=== PATIENT | female | born 1945 | race Caucasian/White ===

== ENCOUNTER 2016-11-22 10:47 | Outpatient (CLI) | payer MEDICARE, MEDICAID ==
[2016-11-22 11:53] LABS: #Basophils 0.1 thou/uL (0.0-0.2); #Eosinphils 0.1 thou/uL (0.0-0.7); #Lymphocytes 2.2 thou/uL (1.20-3.40); #Monocytes 0.5 thou/uL (0.11-0.59); #Neutrophils 4.5 thou/uL (1.40-6.50); %Basophils 1.9 % (0.0-1.0); %Monocytes 6.5 % (0.0-10.0); Hematocrit 47.7 % (36.0-47.0); Mean Platelet Volume 8.6 fL (7.4-10.4); Red Blood Cell (RBC) Count 4.88 mill/uL (4.20-5.40); White Blood Cell (WBC) Count 7.5 thou/uL (4.8-10.8)
[2016-11-22 12:07] LABS: ALT (SGPT) 26 U/L (0-55); AST (SGOT) 24 U/L (5-34); Alkaline Phosphatase 48 U/L (40-150); Anion Gap 16 mmol/L (10-20); BUN (Urea Nitrogen) 28 mg/dL (9.8-20.1); Bilirubin, Total 0.7 mg/dL (0.2-1.2); Calc. Creatinine Clearance 0 mL/min (70-130); Calcium 9.7 mg/dL (7.8-10.44); Carbon Dioxide 23 mmol/L (23-31); Chloride 107 mmol/L (98-107); Estimated GFR-MDRD 42; Globulin 2.7 g/dL (2.4-3.5); LDL Cholesterol, Calculated 92 mg/dL; Protein, Total 6.9 g/dL (5.8-8.1)
== END 2016-11-22 10:48 | disposition home or self-care (01) ==
LOC: HPCALD 10:47
PROVIDERS: ATTEND Family Medicine
DX: E78.00 Pure hypercholesterolemia, unspecified (principal); I10 Essential (primary) hypertension
CPT/HCPCS: 36415; 80053; 80061; 85025

== ENCOUNTER 2016-11-23 10:24 | Outpatient (CLI) | payer MEDICARE, MEDICAID ==
[2016-11-23 11:28] LABS: Hemoglobin A1c 6.2 % (4.0-6.0)
== END 2016-11-23 10:25 | disposition home or self-care (01) ==
LOC: HPCALD 10:24
PROVIDERS: ATTEND Family Medicine
DX: R73.9 Hyperglycemia, unspecified (principal)
CPT/HCPCS: 83036

== ENCOUNTER 2018-03-07 14:13 | Emergency (ER) | payer MEDICARE ==
[~2018-03-07 14:13] MED LIST: Iopamidol 370 76% 100 ML VIAL ONE
[2018-03-07] MEDS ORDERED: Ketorolac Tromethamine 30 MG/ML VIAL ONE (14:34)
[2018-03-07] MEDS ORDERED: Ondansetron HCl/PF 4 MG/2 ML Vial ONE (14:34)
[2018-03-07 14:44] LABS: #Basophils 0.1 thou/uL (0.0-0.2); #Eosinphils 0.2 thou/uL (0.0-0.7); #Lymphocytes 2.2 thou/uL (1.20-3.40); #Monocytes 0.6 thou/uL (0.11-0.59); #Neutrophils 4.8 thou/uL (1.40-6.50); %Basophils 1.7 % (0.0-1.0); %Eosinophils 1.9 % (0.0-10.0); %Lymphocytes 28.1 % (21.0-51.0); %Monocytes 7.5 % (0.0-10.0); %Neutrophils 60.8 % (42.0-75.0); Hemoglobin 15.1 g/dL (12.0-16.0); Mean Corpuscular HGB CONC 34.3 g/dL (32.0-36.0); Mean Corpuscular Hemoglobin 31.6 pg (27.0-31.0); Mean Corpuscular Volume 92.3 fl (81.0-99.0); Mean Platelet Volume 8.7 fL (7.4-10.4); Platelet Count 274 thou/uL (130-400); Red Blood Cell (RBC) Count 4.78 mill/uL (4.20-5.40); White Blood Cell (WBC) Count 7.9 thou/uL (4.8-10.8)
[2018-03-07 14:46] LABS: Bilirubin Negative (Negative); Blood, Urine Negative (Negative); Clarity Clear (Clear); Glucose, Urine (Dipstick) Negative (Negative); Leukocyte Negative (Negative); Nitrite Negative (Negative); Protein, Urine (Dipstick) 30 mg/dL (Neg-Trace); Specific Gravity, Urine 1.015 (1.005-1.030); Urobilinogen 0.2 mg/dL (0.2-1.0); pH, Urine 5.5 (5.0-9.0)
[2018-03-07 14:56] LABS: Bacteria/HPF None Seen HPF (None Seen); Crystals/HPF None Seen HPF (Negative); Hyaline Casts/LPF NONE SEEN LPF (0-3 Hyaline); Other Casts/LPF None Seen LPF (0-3 Hyaline); Oval Fat Bodies/HPF None Seen HPF (None Seen); RBC/HPF None Seen HPF (0-3); Renal Epithelial None Seen HPF (0-3); Sperm/HPF None Seen HPF (None Seen); Squamous Epithelial 0-3 HPF (0-3); Transitional Epithelial NONE SEEN HPF (0-3); Trichomonas/HPF None Seen HPF (None Seen); WBC/HPF None Seen HPF (0-3); Yeast-All Forms None Seen HPF (None Seen)
[2018-03-07 14:59] LABS: ALT (SGPT) 39 U/L (8-55); AST (SGOT) 35 U/L (5-34); Albumin 4.3 g/dL (3.4-4.8); Alkaline Phosphatase 49 U/L (40-150); Anion Gap 16 mmol/L (10-20); BUN (Urea Nitrogen) 24 mg/dL (9.8-20.1); Bilirubin, Total 0.5 mg/dL (0.2-1.2); Calc. Creatinine Clearance 0 mL/min (70-130); Calcium 9.9 mg/dL (7.8-10.44); Carbon Dioxide 25 mmol/L (23-31); Chloride 104 mmol/L (98-107); Estimated GFR-MDRD 48; Glucose 150 mg/dL (83-110); Lipase 20 U/L (8-78); Potassium 3.9 mmol/L (3.5-5.1); Protein, Total 7.3 g/dL (6.0-8.3); Sodium 141 mmol/L (136-145)
[2018-03-07] MEDS ORDERED: Pantoprazole 40 MG VIAL ONE (15:49)
[2018-03-07] MEDS ORDERED: Ciprofloxacin 500 MG TAB ONE (15:59)
[2018-03-07] MEDS ORDERED: metroNIDAZOLE 250 MG TAB ONE (15:59)
[2018-03-07] MEDS ORDERED: Acetaminophen 500 MG TAB ONE (16:02)
[2018-03-07] MEDS ORDERED: metroNIDAZOLE 500 MG/100 ML BAG ONE (16:02)
--- NOTE | 2018-03-07 16:34 | CT ---
CT ABDOMEN AND PELVIS WITH IV CONTRAST 03/07/18 HISTORY: Lower abdominal pain. FINDINGS: There are mild dependent changes in the lung bases. The patient is post cholecystectomy. The liver de monstrates decreased attenuation compared to the spleen consistent with fatty infiltration. The splee n, pancreas, right adrenal gland and kidneys are normal. A small left adrenal myelolipoma is seen wit h presence of macroscopic fat. No free air, free fluid or lymphadenopathy seen in the abdomen or pelvis. The patient is post hystere ctomy. There is colonic diverticulosis with mild pericolonic inflammatory changes in the left lower q uadrant with mild diverticulitis. No abnormally loculated fluid collection is seen to suggest abscess formation. There are vascular calcifications without evidence of aneurysmal dilatation of the abdomi nal aorta. Degenerative changes are present in the spine. IMPRESSION: 1. Colonic diverticulosis with diverticulitis in the left lower quadrant. 2. Fatty liver. 3. Tiny left adrenal myelolipoma. POS: [facility]
== END 2018-03-07 16:49 | disposition home or self-care (01) ==
LOC: BURERS 14:13
DX: K57.92 Diverticulitis of intestine, part unspecified, without perforation or abscess without bleeding (principal); E78.5 Hyperlipidemia, unspecified; I10 Essential (primary) hypertension; F41.9 Anxiety disorder, unspecified; F32.9 Major depressive disorder, single episode, unspecified
CPT/HCPCS: 74177; 80053; 81003; 81015; 83690; 85025; 96361; 96374; 96375; A4216; C9113; J1885; J2405

== ENCOUNTER 2018-09-06 02:16 | Emergency (ER) | payer MEDICARE, OTHER ==
[2018-09-06] MEDS ORDERED: Nitroglycerin 0.4 MG TAB (25 Tab Bottle) ONE (02:50)
[2018-09-06 03:05] LABS: #Basophils 0.1 thou/uL (0.0-0.2); #Eosinphils 0.2 thou/uL (0.0-0.7); #Lymphocytes 2.5 thou/uL (1.20-3.40); #Monocytes 0.6 thou/uL (0.11-0.59); #Neutrophils 3.4 thou/uL (1.40-6.50); %Eosinophils 3.1 % (0.0-10.0); %Monocytes 9.1 % (0.0-10.0); %Neutrophils 49.7 % (42.0-75.0); Hemoglobin 14.5 g/dL (12.0-16.0); Mean Corpuscular HGB CONC 34.7 g/dL (32.0-36.0); Mean Corpuscular Hemoglobin 31.9 pg (27.0-31.0); Mean Corpuscular Volume 91.9 fL (78.0-98.0); Platelet Count 252 thou/uL (130-400); RBC Distribution Width 11.4 % (11.5-14.5); Red Blood Cell (RBC) Count 4.53 mill/uL (4.20-5.40); White Blood Cell (WBC) Count 6.9 thou/uL (4.8-10.8)
[2018-09-06 03:12] LABS: ALT (SGPT) 31 U/L (8-55); AST (SGOT) 32 U/L (5-34); Albumin 4.1 g/dL (3.4-4.8); Alkaline Phosphatase 44 U/L (40-150); Anion Gap 15 mmol/L (10-20); BUN (Urea Nitrogen) 23 mg/dL (9.8-20.1); Bilirubin, Total 0.4 mg/dL (0.2-1.2); Calc. Creatinine Clearance 0 mL/min (70-130); Calcium 9.6 mg/dL (7.8-10.44); Carbon Dioxide 24 mmol/L (23-31); Chloride 107 mmol/L (98-107); Estimated GFR-MDRD 55; Globulin 2.8 g/dL (2.4-3.5); Glucose 153 mg/dL (83-110); Potassium 3.8 mmol/L (3.5-5.1); Protein, Total 6.9 g/dL (6.0-8.3); Sodium 142 mmol/L (136-145)
[2018-09-06 03:14] LABS: CKMB 3.9 ng/mL (0-6.6); Troponin I 0.018 ng/mL (< 0.028)
--- NOTE | 2018-09-06 08:54 | RAD ---
PORTABLE CHEST 1 VIEW: Date: 09/06/18 Time: 0218 hours HISTORY: Shortness of breath. Chest pain. FINDINGS: Heart size is borderline. Lungs are well expanded without lobar consolidation, pneumothoraces, vick pulmonary edema, or pleural effusions. There are postop changes of bilateral shoulder arthroplasties. IMPRESSION: No acute process. POS: [facility]
== END 2018-09-06 03:45 | disposition short-term general hospital (02) ==
LOC: BURERS 02:16
DX: R07.89 Other chest pain (principal); E78.5 Hyperlipidemia, unspecified; F32.9 Major depressive disorder, single episode, unspecified; F41.9 Anxiety disorder, unspecified; I10 Essential (primary) hypertension; Z85.3 Personal history of malignant neoplasm of breast; Z79.82 Long term (current) use of aspirin; Z79.899 Other long term (current) drug therapy
CPT/HCPCS: 71045; 80053; 82553; 83880; 84484; 85025; 85379; 93005

== ENCOUNTER 2020-08-05 14:55 | Emergency (ER) | payer MEDICARE ==
[2020-08-05 15:54] LABS: #Basophils 0.1 thou/uL (0.0-0.2); #Eosinphils 0.2 thou/uL (0.0-0.7); #Lymphocytes 1.9 thou/uL (1.20-3.40); #Monocytes 0.6 thou/uL (0.11-0.59); #Neutrophils 4.1 thou/uL (1.40-6.50); %Basophils 1.5 % (0.0-1.0); %Eosinophils 2.8 % (0.0-10.0); %Monocytes 8.1 % (0.0-10.0); %Neutrophils 59.6 % (42.0-75.0); Hemoglobin 13.5 g/dL (12.0-16.0); Mean Corpuscular HGB CONC 31.5 g/dL (32.0-36.0); Mean Corpuscular Hemoglobin 32.1 pg (27.0-31.0); Mean Platelet Volume 8.2 fL (7.4-10.4); Platelet Count 223 thou/uL (130-400); RBC Distribution Width 12.2 % (11.5-14.5); White Blood Cell (WBC) Count 6.8 thou/uL (4.8-10.8)
[2020-08-05 16:15] LABS: ALT (SGPT) 37 U/L (8-55); AST (SGOT) 26 U/L (5-34); Alkaline Phosphatase 80 U/L (40-110); Anion Gap 16 mmol/L (10-20); BUN (Urea Nitrogen) 26 mg/dL (9.8-20.1); Bilirubin, Total 0.4 mg/dL (0.2-1.2); Calc. Creatinine Clearance 0 mL/min (70-130); Carbon Dioxide 21 mmol/L (23-31); Chloride 108 mmol/L (98-107); Estimated GFR-MDRD 50; Globulin 2.7 g/dL (2.4-3.5); Glucose 139 mg/dL (83-110); Lipase 20 U/L (8-78); Potassium 4.1 mmol/L (3.5-5.1); Protein, Total 6.7 g/dL (6.0-8.3); Sodium 141 mmol/L (136-145)
[2020-08-05 16:28] LABS: Bilirubin Negative (Negative); Blood, Urine Negative (Negative); Clarity Cloudy (Clear); Glucose, Urine (Dipstick) Negative (Negative); Ketone, Urine Trace mg/dL (Negative); Leukocyte Trace (Negative); Nitrite Positive (Negative); Protein, Urine (Dipstick) Negative (Neg-Trace); Specific Gravity, Urine 1.015 (1.005-1.030); Urobilinogen 0.2 mg/dL (Less than 2)
[2020-08-05 16:35] LABS: Bacteria/HPF 3+ HPF (None Seen); RBC/HPF 0-3 HPF (0-3); Squamous Epithelial 0-3 HPF (0-3); Yeast-Budding Rare HPF (None Seen)
--- NOTE | 2020-08-05 20:13 | CT ---
CT ABDOMEN AND PELVIS WITH CONTRAST: 08/05/20 The lung bases are clear except for some dependent atelectasis. A small 1 cm lucency in the left lobe of the liver is probably a small cyst or less likely a small hemangioma. I doubt its significance. T he liver is otherwise normal in appearance. The spleen, pancreas, adrenal glands, and kidneys showed no acute findings. There has been a prior cholecystectomy. The aorta is normal in size. The bowel shows no distention or wall thickening. Diverticulosis is present, predominantly in the lef t colon. There were no convincing findings of diverticulitis. At most, there was a little stranding a round a few of the diverticula near the left iliac crest, but my understanding is that this is not a focal site of pain. Given the clinical history of longstanding diarrhea and cramping pain, there was no particular colonic thickening to suggest colitis. No free air or free fluid was present. CT of the pelvis shows no pelvic masses, fluid collections, or acute inflammatory changes. Degenerati ve changes are present throughout the patient's lumbar region. Comparison with the prior CT of 03/07/18 did not show any dramatic adverse change. IMPRESSION: Diverticulosis without definite findings of diverticulitis at this time. If symptoms worsen, rescanni ng for a second look at the left colon might be necessary. Preliminary findings called to Sofie in ER at 1742 on 08/05/20. POS: HOME
== END 2020-08-05 18:05 | disposition home or self-care (01) ==
LOC: BURERS 14:55
DX: R10.84 Generalized abdominal pain (principal); G89.29 Other chronic pain; R19.7 Diarrhea, unspecified; R11.2 Nausea with vomiting, unspecified; F41.9 Anxiety disorder, unspecified; F32.9 Major depressive disorder, single episode, unspecified; E78.5 Hyperlipidemia, unspecified; E78.00 Pure hypercholesterolemia, unspecified; I10 Essential (primary) hypertension; Z85.3 Personal history of malignant neoplasm of breast; Z79.82 Long term (current) use of aspirin; Z79.899 Other long term (current) drug therapy
CPT/HCPCS: 74177; 80053; 81003; 81015; 83690; 83735; 84443; 84484; 85025; 93005; 94760; Q9967

== ENCOUNTER 2020-09-02 15:08 | Outpatient (CLI) | payer MEDICARE ==
--- NOTE | 2020-09-02 18:14 | RAD ---
LUMBAR SPINE FOUR VIEWS: 09/02/20 AP and lateral views are provided, with lateral views in the neutral, flexion and extension positions . Comparison is made with a 12/19/12 study. No fracture was seen. The appearance of the spine is similar to before, but osteophytes have gotten a bit larger. The disc between L3 and L4 has degenerated a bit more and this disc space has gotten dominick rower. Narrowing at L2-L3 and L5-S1 is about the same as before. Between flexion and extension, there were no levels that showed significant movement. The SI joints are unremarkable. There is very minor curvature of the spine convexed right. IMPRESSION: Multilevel degenerative change with no significant movement of vertebra between flexion and extension . Degenerative disc disease at L3-L4 has worsened since 2012. POS: HOME
== END 2020-09-02 15:09 | disposition home or self-care (01) ==
LOC: BURRAD 15:08
PROVIDERS: ATTEND Neurological Surgery
DX: M48.061 Spinal stenosis, lumbar region without neurogenic claudication (principal); M51.36 Other intervertebral disc degeneration, lumbar region; M47.816 Spondylosis without myelopathy or radiculopathy, lumbar region
CPT/HCPCS: 72110

== ENCOUNTER 2020-11-25 12:41 | Outpatient (CLI) | payer MEDICARE ==
--- NOTE | 2020-11-25 16:51 | RAD ---
LUMBAR SPINE THREE VIEWS: 11/25/20 Comparison is made with the 09/02/20 study. In the interim, there has been laminectomies performed at L3, L4 and L5. There is a posterior lumbar fusion with pedicle screws at L5-S1, along with placement of a synthetic disc at this level. There is a little more curvature to the spine today, convexed right than previously. Additionally, the L2-L3 disc space seems narrower today than before. There are a few air fluid levels in the colon on the right side. The finding is nonspecific and proba arcadio not currently significant. IMPRESSION: Postoperative changes compared to the prior exam. Some increased disc space narrowing at L2-L3 compar ed to before. Postop alignment of the spine is satisfactory. POS: HOME
== END 2020-11-25 12:42 | disposition home or self-care (01) ==
LOC: BURRAD 12:41
PROVIDERS: ATTEND Neurological Surgery
DX: M48.062 Spinal stenosis, lumbar region with neurogenic claudication (principal); Z98.890 Other specified postprocedural states
CPT/HCPCS: 72100

== ENCOUNTER 2020-12-09 15:57 | Emergency (ER) | payer MEDICARE ==
[2020-12-09] MEDS ORDERED: Meclizine HCl 25 MG TAB ONE (16:20)
[2020-12-09 16:23] LABS: #Basophils 0.1 thou/uL (0.0-0.2); #Eosinphils 0.2 thou/uL (0.0-0.7); #Lymphocytes 1.5 thou/uL (1.20-3.40); #Monocytes 0.5 thou/uL (0.11-0.59); #Neutrophils 3.8 thou/uL (1.40-6.50); %Basophils 1.4 % (0.0-1.0); %Eosinophils 2.8 % (0.0-10.0); %Lymphocytes 24.8 % (21.0-51.0); %Monocytes 7.4 % (0.0-10.0); %Neutrophils 63.6 % (42.0-75.0); Hemoglobin 13.3 g/dL (12.0-16.0); Mean Corpuscular HGB CONC 32.5 g/dL (32.0-36.0); Mean Corpuscular Hemoglobin 32.2 pg (27.0-31.0); Mean Platelet Volume 8.5 fL (7.4-10.4); Platelet Count 218 thou/uL (130-400); Red Blood Cell (RBC) Count 4.15 mill/uL (4.20-5.40)
[2020-12-09 16:42] LABS: ALT (SGPT) 22 U/L (8-55); AST (SGOT) 23 U/L (5-34); Alkaline Phosphatase 73 U/L (40-110); Anion Gap 18 mmol/L (10-20); BUN (Urea Nitrogen) 26 mg/dL (9.8-20.1); Bilirubin, Total 0.3 mg/dL (0.2-1.2); Calc. Creatinine Clearance 0 mL/min (70-130); Calcium 9.3 mg/dL (7.8-10.44); Carbon Dioxide 24 mmol/L (23-31); Chloride 103 mmol/L (98-107); Glucose 123 mg/dL (83-110); Potassium 4.4 mmol/L (3.5-5.1); Sodium 141 mmol/L (136-145)
[2020-12-09 17:49] LABS: Bilirubin Negative (Negative); Blood, Urine Negative (Negative); Clarity Cloudy (Clear); Glucose, Urine (Dipstick) Negative (Negative); Ketone, Urine Negative (Negative); Leukocyte Trace (Negative); Nitrite Positive (Negative); Protein, Urine (Dipstick) Trace mg/dL (Neg-Trace); Specific Gravity, Urine 1.015 (1.005-1.030); Urobilinogen 0.2 mg/dL (Less than 2); pH, Urine 6.5 (5.0-9.0)
[2020-12-09 17:51] LABS: Bacteria/HPF 3+ HPF (None Seen); RBC/HPF None Seen HPF (0-3)
== END 2020-12-09 18:07 | disposition home or self-care (01) ==
LOC: BURERS 15:57
DX: H81.13 Benign paroxysmal vertigo, bilateral (principal); R82.71 Bacteriuria; E78.5 Hyperlipidemia, unspecified; E78.00 Pure hypercholesterolemia, unspecified; I10 Essential (primary) hypertension
CPT/HCPCS: 36415; 70450; 80053; 81003; 81015; 85025; 87077; 87086; 87186; 93005

== ENCOUNTER 2021-08-09 15:47 | Outpatient (CLI) | payer MEDICARE | END 2021-08-09 15:48 | disposition home or self-care (01) | LOC: BURRAD 15:47 | PROVIDERS: ATTEND Neurological Surgery | DX: M47.26 Other spondylosis with radiculopathy, lumbar region (principal) | CPT/HCPCS: 72120 ==

== ENCOUNTER 2023-03-17 11:40 | Emergency (ER) | payer MEDICARE | END 2023-03-17 13:14 | disposition home or self-care (01) | LOC: BURERS 11:40 | DX: M25.561 Pain in right knee (principal); I10 Essential (primary) hypertension ==

== ENCOUNTER 2024-04-18 10:46 | Outpatient (CLI) | payer MEDICARE ==
[2024-04-18] MEDS ORDERED: Iopamidol 370 76% 100 ML VIAL ONE (12:13)
== END 2024-04-18 10:47 | disposition home or self-care (01) ==
LOC: BURCT 10:46
PROVIDERS: ATTEND Family Medicine
DX: R10.9 Unspecified abdominal pain (principal); Z01.812 Encounter for preprocedural laboratory examination; R91.8 Other nonspecific abnormal finding of lung field; K57.32 Diverticulitis of large intestine without perforation or abscess without bleeding; I70.0 Atherosclerosis of aorta; I25.10 Atherosclerotic heart disease of native coronary artery without angina pectoris; I70.8 Atherosclerosis of other arteries; N28.1 Cyst of kidney, acquired; K63.89 Other specified diseases of intestine; K57.30 Diverticulosis of large intestine without perforation or abscess without bleeding; M47.816 Spondylosis without myelopathy or radiculopathy, lumbar region; Z90.49 Acquired absence of other specified parts of digestive tract
CPT/HCPCS: 74177; 82565; Q9967